=== PATIENT | male | born 1945 | race Caucasian/White ===

== ENCOUNTER → 2018-03-23 | Outpatient (CLI) | payer OTHER ==
--- NOTE | 2018-03-23 16:09 | NM ---
EXAMINATION TYPE: NM DatScan Brain SPECT DATE OF EXAM: 03/23/2018 COMPARISON: NONE HISTORY: History of tremors for 2 years with memory loss for 10 years and abnormal gait with leg weak ness fatigue and urinary incontinence TECHNIQUE: 10 drops of Lugol's solution was administered 1 hour prior to injection as a thyroid bloc esthela agent. After the administration of 4.55 mCi I-123 Ioflupane DaTscan. Images obtained 3 hours p ost injection. SPECT images of the brain were acquired with axial and coronal reconstructions. FINDINGS: The DaTSCAN demonstrates normal uptake of tracer throughout the striata. There is no evidence of loss of the pre-synaptic dopaminergic terminals. This normal appearance is against a diagnosis of idiopathic PD or PS and is seen in healthy individua ls and also patients with ET and drug induced Parkinsonism. IMPRESSION: Normal radiotracer uptake against a diagnosis of idiopathic Parkinson's disease. This can be seen in healthy patients or patients with drug induced parkinsonism or central tremor.
== END | disposition home or self-care (01) ==
LOC: RADNMMAIN 10:22
PROVIDERS: ATTEND Psychiatry & Neurology Neurology
DX: R25.1 Tremor, unspecified (principal)
CPT/HCPCS: 78607; A9584

== ENCOUNTER → 2020-01-20 | Outpatient (CLI) | payer OTHER ==
--- NOTE | 2020-01-20 12:45 | FL ---
EXAMINATION TYPE: FL barium swallow DATE OF EXAM: 01/20/2020 CLINICAL HISTORY: Dysphagia with difficulty swallowing for 4 to 5 months (solids and liquids) TECHNIQUE: A double contrast esophagram is performed utilizing air and barium. A total of 1.53 nayely evangelista of fluoroscopic time was utilized during procedure. 54 fluoroscopic images were saved. COMPARISON: None FINDINGS: Anterior projecting osteophytes of the cervical spine impressing on the posterior cervical esophagus. The esophagus shows normal abnormal with few tertiary contractions throughout the exam. N o evidence of hiatal hernia or stricture noted. No significant gastroesophageal reflux was seen durin g real time performance of this study. Vallecular and piriform retention of contrast was seen through out the exam. IMPRESSION: 1. No hiatal hernia or esophageal stricture seen. 2. Vallecular and piriform retention of contrast. Speech therapy consultation may be of benefit. 3. Few tertiary contractions throughout the examination most commonly related to presbyesophagus.
== END | disposition home or self-care (01) ==
LOC: RADUSWWP 10:50
DX: K22.8 Other specified diseases of esophagus (principal)
CPT/HCPCS: 74220

== ENCOUNTER 2023-07-11 11:45 | Emergency (ER) | payer OTHER ==
[2023-07-11 11:55] VITALS: RESP 18; TEMP 98.1
[2023-07-11] MEDS ORDERED: SODIUM CHLORIDE 0.9% 1,000 ML IV STA (12:03)
--- NOTE | 2023-07-11 12:26 | ED ---
Recheck HPI - General Chief Complaint: Recheck/Abnormal Lab/Rx Stated Complaint: poss UTI Time Seen by Provider: 07/11/23 11:54 Source: EMS Mode of arrival: EMS Limitations: altered mental status - History of Present Illness Initial Comments: Patient is a 78-year-old male presenting to the emergency room via EMS for evaluation of possible UTI. Per EMS the states that he is having bloody urine in pain with urination and she is concerned that he still has a urinary tract infection and which today is his last dose of cefepime which was pr escribed by [facility] on 07/06/2023. He has been afebrile and denies any pain or grimace on palpation. He is at his baseline mental status which is alert and oriented times first name only. He is incontinent of bowel and bladder. He is resting comfortably in bed. His past medical history as listed below was reviewed. - Related Data Previous Rx's Medication Instructions Recorded Sulfamethox-Tmp 800-160Mg [Bactrim 1 tab PO Q12HR 7 Days #14 tab 07/11/23 DS 800-160 mg] Allergies Allergy/AdvReac Type Severity Reaction Status Date / Time No Known Allergies Allergy Verified 07/11/23 12:07 Review of Systems ROS Statement: Those systems with pertinent positive or pertinent negative responses have been documented in the HPI. ROS Other: All systems not noted in ROS Statement are negative. Past Medical History Past Medical History: Dementia, Hypertension History of Any Multi-Drug Resistant Organisms: Unobtainable Past Surgical History: Unable to Obtain Past Psychological History: Unable to Obtain Smoking Status: Unknown if ever smoked Past Alcohol Use History: Unable to Obtain Past Drug Use History: Unable to Obtain General Exam Limitations: altered mental status General appearance: alert, in no apparent distress, cachectic Head exam: Present: atraumatic, normocephalic, normal inspection Eye exam: Present: normal appearance, PERRL, EOMI. Absent: scleral icterus, conjunctival injection, periorbital swelling ENT exam: Present: mucous membranes dry Neck exam: Present: normal inspection Respiratory exam: Present: normal lung sounds bilaterally. Absent: respiratory distress, wheezes, rales, rhonchi, stridor Cardiovascular Exam: Present: normal rhythm, bradycardia, normal heart sounds. Absent: systolic murmur, diastolic murmur, rubs, gallop, clicks GI/Abdominal exam: Present: soft, normal bowel sounds. Absent: distended, tenderness, guarding, rebound, rigid Rectal exam: Present: deferred exam: Present: normal inspection Extremities exam: Present: normal inspection. Absent: pedal edema, joint swelling Back exam: Present: normal inspection Neurological exam: Present: alert Expanded Patient oriented to: Present: person. Absent: place, time Eye Response: (3) open to voice Motor Response: (6) obeys commands Verbal Response: (3) inappropriate words Day Total: 12 Psychiatric exam: Present: flat affect Skin exam: Present: warm, dry, intact, normal color. Absent: rash Course Vital Signs 07/11/23 07/11/23 11:49 13:30 Temperature 98.1 F Pulse Rate 47 L 62 Respiratory 18 18 Rate Blood Pressure 136/70 141/71 O2 Sat by Pulse 95 95 Oximetry Medical Decision Making - Medical Decision Making Was pt. sent in by a medical professional or institution (, PA, PHARMACY STOCK CLERK, urgent care, hospital, or care home...) When possible be specific @ -No Did you speak to anyone other than the patient for history (EMS, parent, family, police, friend...)? What history was obtained from this source @ -Yes obtained from the nurse to obtain information from EMS. Did you review nursing and triage notes (agree or disagree)? Why? @ -I reviewed and agree with nursing and triage notes Were old charts reviewed (outside hosp., previous admission, EMS record, old EKG, old radiological studies, urgent care reports/EKG's, care home records)? Report findings @ -Discharge summary from [facility] on 07/06/2023 reviewed Differential Diagnosis (chest pain, altered mental status, abdominal pain women, abdominal pain men, vaginal bleeding, weakness, fever, dyspnea, syncope, headache, dizziness, GI bleed, back pain, seizure, CVA, palpatations, mental health, musculoskeletal)? @ -Differential Altered Mental Status: Hypoglycemia, DKA, hypercapnia, ETOH, overdose, CO poisoning, trauma, myxedema coma, HTN encephalopathy, infection, encephalitis, psychosis, intercranial hemorrhage, hepatic encephalopathy, meningitis, CVA, this is not meant to be an all-inclusive list EKG interpreted by me (3pts min.). @ -None done X-rays interpreted by me (1pt min.). @ -None done CT interpreted by me (1pt min.). @ -None done U/S interpreted by me (1pt. min.). @ -None done What testing was considered but not performed or refused? (CT, X-rays, U/S, labs)? Why? @ -None What meds were considered but not given or refused? Why? @ -None Did you discuss the management of the patient with other professionals (professionals i.e. DrDeanna, PA, PHARMACY STOCK CLERK, lab, RT, psych nurse, director of social work, card lacer jacquard, teacher, security officer, counseling case manager)? Give summary @ -No Was smoking cessation discussed for >3mins.? @ -No Was critical care preformed (if so, how long)? @ -No Were there social determinants of health that impacted care today? How? (Homelessness, low income, unemployed, alcoholism, drug addiction, transportation, low edu. Level, literacy, decrease access to med. care, care home, rehab)? @ -No Was there de-escalation of care discussed even if they declined (Discuss DNR or withdrawal of care, Hospice)? DNR status @ -No What co-morbidities impacted this encounter? (DM, HTN, Smoking, COPD, CAD, Cancer, CVA, ARF, Chemo, Hep., AIDS, mental health diagnosis, sleep apnea, m orbid obesity)? @ -None Was patient admitted / discharged? Hospital course, mention meds given and route, prescriptions, significant lab abnormalities, going to OR and other pertinent info. @ -78-year-old male presenting to the emergency room via EMS for evaluation of possible UTI. Per EMS the states that he is having bloody urine in pain with urination and she is concerned that he still has a urinary tract infection and which today is his last dose of cefepime which was prescribed by [facility] on 07/06/2023. He has been afebrile and denies any pain or grimace on palpation. He is at his baseline mental status which is alert and oriented times first name only. Will give 1 L fluid bolus due to dry mucous membranes, no indication for other medication at this time. We will start conservative workup with CBC, CMP and urinalysis along with lactic acid. Urinalysis with bloody appearance with greater than 182 RBCs greater than 182 WBCs and many bacteria culture ordered and pending. Lactic acid normal mild leukocytosis noted on CBC with a WBC of 13.4 with a neutrophil of 11.3. CMP with slightly elevated BUN at 21 normal creatinine 0.97 chloride high at 110 remaining electrolytes normal. Recent completion of cefepime without improvement in symptoms NO KNOWN DRUG ALLERGIES will change antibiotic therapy to by mouth Bactrim outpatient advising spouse that the emergency room will call if prior coverage as needed. Return parameters to the emergency room conveyed to spouse by nurse. Will discharge home via EMS in stable condition on oral antibiotic therapy to treat a UTI and hematuria advising follow-up with primary care provider. Undiagnosed new problem with uncertain prognosis? @ -No Drug Therapy requiring intensive monitoring for toxicity (Heparin, Nitro, Insulin, Cardizem)? @ -No Were any procedures done? @ -No Diagnosis/symptom? @ -UTI Acute, or Chronic, or Acute on Chronic? @ -Acute Uncomplicated (without systemic symptoms) or Complicated (systemic symptoms)? @ -Complicated, gross hematuria secondary to UTI Side effects of treatment? @ -No Exacerbation, Progression, or Severe Exacerbation? @ -No Poses a threat to life or bodily function? How? (Chest pain, USA, NC, pneumonia, PE, COPD, DKA, ARF, appy, cholecystitis, CVA, Diverticulitis, Homicidal, Suicidal, threat to staff... and all critical care pts) @ -No Diagnosis/symptom? @ -Hematuria Acute, or Chronic, or Acute on Chronic? @ -Acute Uncomplicated (without systemic symptoms) or Complicated (systemic symptoms)? @ -Uncomplicated Side effects of treatment? @ -none Exacerbation, Progression, or Severe Exacerbation] @ -no Poses a threat to life or bodily function? @ -no Case discussed with Dr. Iglesias. - Lab Data Result diagrams: 07/11/23 12:04 07/11/23 12:04 Lab Results 07/11/23 07/11/23 07/11/23 Range/Units 12:04 12:04 12:04 WBC 13.4 H (3.8-10.6) k/uL RBC 4.29 L (4.30-5.90) m/uL Hgb 13.4 (13.0-17.5) gm/dL Hct 41.0 (39.0-53.0) % MCV 95.7 (80.0-100.0) fL MCH 31.3 (25.0-35.0) pg MCHC 32.8 (31.0-37.0) g/dL RDW 14.0 (11.5-15.5) % Plt Count 202 (150-450) k/uL MPV 9.0 Neutrophils % 85 % Lymphocytes % 8 % Monocytes % 5 % Eosinophils % 1 % Basophils % 0 % Neutrophils # 11.3 H (1.3-7.7) k/uL Lymphocytes # 1.1 (1.0-4.8) k/uL Monocytes # 0.7 (0-1.0) k/uL Eosinophils # 0.2 (0-0.7) k/uL Basophils # 0.0 (0-0.2) k/uL Sodium 140 (137-145) mmol/L Potassium 3.8 (3.5-5.1) mmol/L Chloride 110 H (98-107) mmol/L Carbon Dioxide 25 (22-30) mmol/L Anion Gap 5 mmol/L BUN 21 H (9-20) mg/dL Creatinine 0.97 (0.66-1.25) mg/dL Est GFR (CKD-EPI)AfAm 88 (>60 ml/min/1.73 sqM) Est GFR (CKD-EPI)NonAf 76 (>60 ml/min/1.73 sqM) Glucose 99 (74-99) mg/dL Plasma Lactic Acid Elkin 1.3 (0.7-2.0) mmol/L Calcium 8.5 (8.4-10.2) mg/dL Total Bilirubin 0.6 (0.2-1.3) mg/dL AST 29 (17-59) U/L ALT 34 (4-49) U/L Alkaline Phosphatase 85 (38-126) U/L Total Protein 6.7 (6.3-8.2) g/dL Albumin 3.3 L (3.5-5.0) g/dL Urine Appearance (Clear) Urine RBC (0-5) /hpf Urine WBC (0-5) /hpf Urine Bacteria (None) /hpf 07/11/23 Range/Units 12:54 WBC (3.8-10.6) k/uL RBC (4.30-5.90) m/uL Hgb (13.0-17.5) gm/dL Hct (39.0-53.0) % MCV (80.0-100.0) fL MCH (25.0-35.0) pg MCHC (31.0-37.0) g/dL RDW (11.5-15.5) % Plt Count (150-450) k/uL MPV Neutrophils % % Lymphocytes % % Monocytes % % Eosinophils % % Basophils % % Neutrophils # (1.3-7.7) k/uL Lymphocytes # (1.0-4.8) k/uL Monocytes # (0-1.0) k/uL Eosinophils # (0-0.7) k/uL Basophils # (0-0.2) k/uL Sodium (137-145) mmol/L Potassium (3.5-5.1) mmol/L Chloride (98-107) mmol/L Carbon Dioxide (22-30) mmol/L Anion Gap mmol/L BUN (9-20) mg/dL Creatinine (0.66-1.25) mg/dL Est GFR (CKD-EPI)AfAm (>60 ml/min/1.73 sqM) Est GFR (CKD-EPI)NonAf (>60 ml/min/1.73 sqM) Glucose (74-99) mg/dL Plasma Lactic Acid Elkin (0.7-2.0) mmol/L Calcium (8.4-10.2) mg/dL Total Bilirubin (0.2-1.3) mg/dL AST (17-59) U/L ALT (4-49) U/L Alkaline Phosphatase (38-126) U/L Total Protein (6.3-8.2) g/dL Albumin (3.5-5.0) g/dL Urine Appearance Bloody (Clear) Urine RBC >182 H (0-5) /hpf Urine WBC >182 H (0-5) /hpf Urine Bacteria Many H (None) /hpf Disposition Clinical Impression: Hematuria, UTI (urinary tract infection) Disposition: HOME SELF-CARE Condition: Stable Instructions (If sedation given, give patient instructions): Urinary Tract Inf ection in Men (DC), Hematuria (ED) Additional Instructions: Keep patient well hydrated. Complete course of antibiotic as prescribed. Please follow-up with primary care provider. Prompt perineal care after episodes of bowel or bladder incontinence is encouraged. Please return to the Emergency Department if symptoms worsen or any other concerns. Prescriptions: Sulfamethox-Tmp 800-160Mg [Bactrim DS 800-160 mg] 1 tab PO Q12HR 7 Days #14 tab Is patient prescribed a controlled substance at d/c from ED?: No Referrals: [facility],Clinic [Primary Care Provider] - 1-2 days
[2023-07-11 12:44] LABS: Basophils % (A) 0 %; Eosinophils # (A) 0.2 k/uL (0-0.7); Eosinophils % (A) 1 %; HGB 13.4 gm/dL (13.0-17.5); Lymphocytes # (A) 1.1 k/uL (1.0-4.8); Lymphocytes % (A) 8 %; MCH 31.3 pg (25.0-35.0); MCHC 32.8 g/dL (31.0-37.0); MCV 95.7 fL (80.0-100.0); Monocytes # (A) 0.7 k/uL (0-1.0); Monocytes % (A) 5 %; Neutrophils # (A) 11.3 k/uL (1.3-7.7); Neutrophils % (A) 85 %; Platelet Count 202 k/uL (150-450); RBC 4.29 m/uL (4.30-5.90); WBC 13.4 k/uL (3.8-10.6)
[2023-07-11 13:01] LABS: ALT 34 U/L (4-49); AST 29 U/L (17-59); African American GFR (CKD) 88 (>60 ml/min/1.73 sqM); Albumin 3.3 g/dL (3.5-5.0); Alkaline Phosphatase 85 U/L (38-126); Anion Gap 5 mmol/L; Blood Urea Nitrogen 21 mg/dL (9-20); Calcium 8.5 mg/dL (8.4-10.2); Carbon Dioxide 25 mmol/L (22-30); Chloride 110 mmol/L (98-107); Glucose 99 mg/dL (74-99); Non-African American GFR(CKD) 76 (>60 ml/min/1.73 sqM); Potassium 3.8 mmol/L (3.5-5.1); Sodium 140 mmol/L (137-145); Total Bilirubin 0.6 mg/dL (0.2-1.3); Total Protein 6.7 g/dL (6.3-8.2)
[2023-07-11 13:32] LABS: Bacteria,Urine Many /hpf; RBC,Urine >182 /hpf (0-5); WBC,Urine >182 /hpf (0-5)
[2023-07-11 13:35] VITALS: BP 141/71; PULSE 62
[2023-07-11 13:35] LABS: Appearance,Urine Bloody (Clear)
== END 2023-07-11 14:13 | disposition home or self-care (01) ==
LOC: EC 11:45
DX: N39.0 Urinary tract infection, site not specified (principal); B96.4 Proteus (mirabilis) (morganii) as the cause of diseases classified elsewhere; I10 Essential (primary) hypertension
CPT/HCPCS: 36415; 80053; 81001; 83605; 85025; 87077; 87086; 87186; 96360; 99284

== ENCOUNTER → 2023-12-28 | Outpatient (CLI) | payer OTHER ==
--- NOTE | 2023-12-28 14:23 | CT ---
EXAMINATION TYPE: CT brain wo con DATE OF EXAM: 12/28/2023 COMPARISON: None HISTORY: Hydrocephalus CT DLP: 1029.9 mGycm Automated exposure control for dose reduction was used. FINDINGS: There is marked dilatation of the lateral and third ventricle and moderate dilatation of the sulci ov er convexities and basal cisterns. There is no mass effect or shift of the midline structures. There is diffuse abnormal density in the periventricular white matter consistent with chronic ischemi c white matter demyelination. There is no acute intra or extra-axial hemorrhage. There is a remote lacunar infarct in the right basal ganglia. The posterior fossa is grossly normal. The intraorbital contents are normal and symmetric. There is a mucous retention cyst or polyp in the right maxillary sinus otherwise the paranasal sinuse s and mastoid air cells are well aerated. The calvarium is intact. IMPRESSION: 1. Marked atrophy with a greater central component versus normal pressure hydrocephalus. 2. Marked chronic ischemic white matter demyelination and remote lacunar infarct in the right basal g anglia. 3. No acute bleed or mass effect IMPRESSION:
== END | disposition home or self-care (01) ==
LOC: RADCTMAIN 12:57
PROVIDERS: ATTEND Family Medicine
DX: I67.82 Cerebral ischemia (principal); G31.9 Degenerative disease of nervous system, unspecified; G93.89 Other specified disorders of brain; G91.9 Hydrocephalus, unspecified
CPT/HCPCS: 70450